=== PATIENT | male | born 1995 | race Two or more races ===

== ENCOUNTER → 2022-01-07 | Outpatient (CLI) | payer OTHER ==
--- NOTE | 2022-01-07 13:46 | KCIC ---
EXAMINATION: XR CHEST 1V CLINICAL HISTORY: Tuberculosis. EXAM DATE/TIME: 01/07/2022 1:27 PM COMPARISON: None FINDINGS: Lines, Tubes, and Devices: None. Cardiomediastinal Silhouette: Within normal limits. Lungs and Pleura: No evidence of focal airspace consolidation or pleural effusion. Pulmonary vasculat ure unremarkable. Bones and Soft Tissues: No acute osseous abnormality. IMPRESSION: No evidence of acute cardiopulmonary abnormality or active pulmonary tuberculosis. Electronically signed by: Hunter Arias DO (01/07/2022 1:44 PM) [id number]
== END ==
LOC: KCIC 13:23
PROVIDERS: ATTEND Internal Medicine Pulmonary Disease
DX: Z20.1 Contact with and (suspected) exposure to tuberculosis (principal)
CPT/HCPCS: 71045